=== PATIENT | male | born 1960 | race Caucasian/White ===

== ENCOUNTER → 2022-02-01 09:18 | Outpatient (BNVA) | payer OTHER, SELFPAY | PROVIDERS: Visit Provider Internal Medicine | DX: Z13.89 Encounter for screening for other disorder (principal) | CPT/HCPCS: 73564; 99204 ==

== ENCOUNTER → 2022-02-08 09:10 | Outpatient (BNVA) | payer OTHER, SELFPAY | PROVIDERS: Visit Provider Physician Assistant | DX: Z13.89 Encounter for screening for other disorder (principal) | CPT/HCPCS: 99214 ==

== ENCOUNTER 2022-02-21 18:09 | Outpatient (REF) | payer OTHER, SELFPAY ==
--- NOTE | ~2022-02-21 | MR_ITS ---
EXAMINATION: MR KNEE WITHOUT CONTRAST, RIGHT CLINICAL INFORMATION: Right knee pain COMPARISON: Radiographs 02/01/2022 TECHNIQUE: MRI of the knee without contrast was performed using routine sequences on a high-field scanner. FINDINGS: MENISCI: Medial Meniscus: Irregular horizontal tearing of the posterior horn primarily extending along the inferior articular surface. This extends to the meniscal body which is extruded. Tiny posterior parameniscal cysts. Lateral Meniscus: Intact LIGAMENTS: Cruciate: Intact Collateral: Intact EXTENSOR MECHANISM: Intact ARTICULAR CARTILAGE/BONE: Patellofemoral Compartment: Normal Medial Compartment: Nonuniform cartilage loss with focal full-thickness defects and marrow edema of the weightbearing femoral condyle. Small marginal osteophytes. Lateral Compartment: Small marginal osteophytes. JOINT FLUID AND BURSAE: Moderate joint effusion and trace Macedo's cyst. MR/MR knee RT wo con IMPRESSION: 1. Irregular horizontal tearing of the posterior horn of the medial meniscus extending to the meniscal body which is extruded. 2. Moderate medial and mild lateral compartment osteoarthritis. Moderate joint effusion.
== END 2022-02-21 18:10 | disposition home or self-care (01) ==
LOC: HO.MRI 18:09
PROVIDERS: Visit Provider Physician Assistant
DX: S89.91XD Unspecified injury of right lower leg, subsequent encounter (principal); R60.0 Localized edema
CPT/HCPCS: 73721

== ENCOUNTER → 2022-02-22 08:59 | Outpatient (BNVA) | payer OTHER, SELFPAY | PROVIDERS: Visit Provider Physician Assistant | DX: Z13.89 Encounter for screening for other disorder (principal) | CPT/HCPCS: 99213 ==

== ENCOUNTER 2022-03-08 07:10 | Outpatient (REF) | payer OTHER, SELFPAY ==
--- NOTE | ~2022-03-08 | XR_ITS ---
EXAMINATION: XR KNEE AP STANDING CLINICAL INFORMATION: Pain. COMPARISON: Radiographs dated 02/01/2022. TECHNIQUE: AP bilateral standing view of the knees was obtained. FINDINGS: Bony mineralization is normal. There is very mild narrowing of the bilateral medial joint space compartments, with slight peripheral osteophyte formation. The bilateral lateral joint space compartments are well-maintained. No fracture or dislocation is seen. This no significant varus or valgus configuration. No foreign body is noted. XR/XR knee standing BI IMPRESSION: Very mild osteoarthritic change is seen of the bilateral medial joint space compartments. No significant varus or valgus configuration is seen bilaterally.
== END 2022-03-08 07:11 | disposition home or self-care (01) ==
LOC: HO.HOSX 07:10
PROVIDERS: Visit Provider Physician Assistant
DX: M17.11 Unilateral primary osteoarthritis, right knee (principal); S83.206A Unspecified tear of unspecified meniscus, current injury, right knee, initial encounter
CPT/HCPCS: 20610; 73565; 99202; J1040

== ENCOUNTER → 2022-04-03 08:07 | Outpatient (BNVA) | payer OTHER, SELFPAY | PROVIDERS: Visit Provider Physician Assistant | DX: S83.206A Unspecified tear of unspecified meniscus, current injury, right knee, initial encounter (principal); M17.11 Unilateral primary osteoarthritis, right knee | CPT/HCPCS: 99212 ==

== ENCOUNTER → 2022-06-18 08:26 | Outpatient (BNVA) | payer OTHER, SELFPAY | PROVIDERS: Visit Provider Physician Assistant | DX: Z13.89 Encounter for screening for other disorder (principal) ==

== ENCOUNTER → 2022-07-19 14:42 | Outpatient (BNVA) | payer OTHER, SELFPAY | PROVIDERS: PCP Physician Assistant; Visit Provider Physician Assistant | DX: Z01.818 Encounter for other preprocedural examination (principal); S83.206D Unspecified tear of unspecified meniscus, current injury, right knee, subsequent encounter; M17.11 Unilateral primary osteoarthritis, right knee | CPT/HCPCS: 99212 ==

== ENCOUNTER 2022-07-24 13:44 | Day surgery (SDC) | payer OTHER, SELFPAY ==
[2022-07-18 10:20] VITALS: BMI 27.3
[2022-07-18 13:26] VITALS: BMI 27.3
--- NOTE | 2022-07-23 08:53 | HO.ANESPROP2 ---
Documented by User: Chiqui Bill NP 07/23/22 08:54 HPI - Anesthesia Eval Consult details Narrative: 62yo M for Right Knee Arthroscopy PMFSH Active Problems Active Problems: All Active Problems (Updated 07/18/22 @ 13:28 by Carie Salgado RN) Right knee meniscal tear (Acute) Osteoarthritis of right knee (Acute) Past Medical History Medical History Arthritis Family history of anesthesia complication High blood pressure History of cardiac murmur as a child Vaccination declined Surgical History Surgical History H/O colonoscopy Hx of arthroscopy of left knee Hx of hand surgery Hx of right knee surgery Social History Social History Household Members Other:: one son Are you a primary intensive care anaesthetist to a significant other at home: No Do you presently have visiting nurse or other home services: No Patient Tobacco Use Status: Never used Tobacco Use of substances other than those prescribed or required for medical reasons: No Have you been hit, kicked, punched, or otherwise hurt by someone within the past year? 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 Allergies Allergy/AdvReac Type Severity Reaction Status Date / Time bee pollen [bee stings] Allergy Severe Anaphylaxis Verified 07/19/22 14:57 morphine AdvReac Severe Vomiting Verified 07/19/22 14:57 poison salome extract AdvReac Intermediate Rash Verified 07/19/22 14:57 Home Medications Medication Instructions Recorded Confirmed Last Taken Type amlodipine 10 mg tablet 10 mg PO DAILY 03/08/22 07/18/22 Unknown History losartan 50 mg tablet 50 mg PO DAILY 06/18/22 07/18/22 Unknown History Exam Exam Date and Time: July 23, 2022 0853 Height,Weight and Vital Signs: Height 5 ft 9 in Weight 83.915 kg Assessment and Plan Assessment Anesthesia Assessment: Chart Reviewed Documented by User: Arpit Kowalski MD 07/24/22 15:19 [facility] Past Medical History Medical History Arthritis Family history of anesthesia complication High blood pressure History of cardiac murmur as a child Vaccination declined Family History Family history of problems with anesthesia: No Surgical History Surgical History H/O colonoscopy Hx of arthroscopy of left knee Hx of hand surgery Hx of right knee surgery History of Problems with Anesthesia: No Social History Social History Household Members Other:: one son Are you a primary intensive care anaesthetist to a significant other at home: No Do you presently have visiting nurse or other home services: No Patient Tobacco Use Status: Never used Tobacco Use of substances other than those prescribed or required for medical reasons: No Have you been hit, kicked, punched, or otherwise hurt by someone within the past year? 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 Allergies Allergy/AdvReac Type Severity Reaction Status Date / Time bee pollen [bee stings] Allergy Severe Anaphylaxis Verified 07/19/22 14:57 morphine AdvReac Severe Vomiting Verified 07/19/22 14:57 poison salome extract AdvReac Intermediate Rash Verified 07/19/22 14:57 Home Medications Medication Instructions Recorded Confirmed Last Taken Type amlodipine 10 mg tablet 10 mg PO DAILY 03/08/22 07/18/22 Unknown History losartan 50 mg tablet 50 mg PO DAILY 06/18/22 07/18/22 Unknown History Exam Airway Mallampati Class: II TM Dist: >3cm Neck ROM: Full Loose/Missing/Broken Teeth: No Assessment and Plan Assessment Anesthesia Assessment: Anesthesia Plan Discussed Final Anesthetic Review Family History of Problems with Anesthesia: No History of Problems with Anesthesia: No NPO: Yes ASA Class: I Final Preanesthetic Review: No Changes in Pt Med Stat, Meds/Allgs Chart Reviewed, Consent Obtained/Reviewed and Anes Risks/Benef Reviewed Patient Risk: Low Procedure Risk: Low Anesthetic Plan Anesthetic Plan: GA Disposition: Standard PACU
[2022-07-24] VITALS (7 sets, daily range): BP systolic 142–159; BP diastolic 73–93; PULSE 67–81; RESP 16–17; TEMP 36.8–37.2; O2SAT 96–100
[2022-07-24] MEDS: Lactated Ringers 1,000 ML 100 ML IVCONT (14:29)
--- NOTE | 2022-07-24 15:29 | MHC.SHP ---
Pre-Procedural Eval Section A Date of Service: 07/24/22 The patient is an INPATIENT: No Changes since office visit: No Cold of Flu in the past 2 weeks, No New Medical Problems, No Changes in Medication and No Patient answered all questions The History & Physical has been completed within 30 days and I have reviewed it.: Yes Section B Chief Complaint: Unspecified tear of unspecified meniscus, current Allergies: Allergies Allergy/AdvReac Type Severity Reaction Status Date / Time bee pollen [bee stings] Allergy Severe Anaphylaxis Verified 07/19/22 14:57 morphine AdvReac Severe Vomiting Verified 07/19/22 14:57 poison salome extract AdvReac Intermediate Rash Verified 07/19/22 14:57 Plan I have reviewed the history and physical and performed a pertinent physical examination on my patient. No changes have occurred unless specified. Time Spent With Patient Time: Total time managing care of this patient today ____ minutes.
[2022-07-24] MEDS: Ketorolac Tromethamine 30 MG/ML VIAL 15 MG IVPUSH (17:06)
--- NOTE | 2022-07-26 12:41 | PM.OP ---
Brief Operative Note Date of Service: 07/24/22 Pre-op diagnosis: Right knee MMT Post-op diagnosis: other (1) Right knee MMT 2) Right knee OA) Procedure: Right knee with partial medial meniscectomy and chondroplasty Surgeon: Darshan Lauren MD Anesthesia: GETA and local Was an Fisher Dip Net used for this Procedure?: No Estimated blood loss (mL): 5 Tourniquet time (min): 30 IV fluids (mL): 800 Pathology: none sent Condition: stable Disposition: PACU
--- NOTE | 2022-07-26 12:44 | W.PM.OPN ---
Operative Note Operative Note Date of Service: 07/24/22 Narrative: Date of Service: 07/24/22 Pre-op diagnosis: Right knee MMT Post-op diagnosis: other (1) Right knee MMT 2) Right knee OA) Procedure: Right knee with partial medial meniscectomy and chondroplasty Surgeon: Darshan Lauren MD Anesthesia: GETA and local Was an Telephony Engineer used for this Procedure?: No Estimated blood loss (mL): 5 Tourniquet time (min): 30 IV fluids (mL): 800 Pathology: none sent Condition: stable Disposition: PACU Procedure in detail: Patient was brought to the operating room placed supine on the arthroscopic table and prepped and draped in standard sterile fashion. A time-out was called to identify proper site proper procedure proper surgeon and IV antibiotics per weight were administered. I began by exsanguinating the limb and insufflating tourniquet to 300 mm Hg. Then made a standard anterolateral stab incision. The knee was insufflated with saline and 30 degree arthroscope was placed. There was grade 1 fibrillations of the patella but overall suprapatellar pouch was plane and the gutters were clean. I descended into the medial compartment where I made my medial portal under direct visualization. There was obvious of complex tear of the body and posterior horn of the medial meniscus. The root was intact and there was grade 3 changes with some scattered grade 4 changes throug the weight bearing portion of the medial femoral condyle. I used a combination of biter shaver and cautery to remove unstable portions of the meniscus. Approximately 40% pf the meniscal volume was removed. A chondroplasty was then performed with the ablation wand.Once I was satisfied with this the ACL was examined and found to be intact and the lateral compartment also was without the need for intervention. I then removed all instrumentation and closed the portals with skin glue. 25 mL of 2% Marcaine with epinephrine was injected into the joint and the surrounding soft tissues. Patient was then placed in sterile dressing extubated brought recovery room stable condition. There were no known complications.
== END 2022-07-24 17:40 | disposition home or self-care (01) ==
LOC: HO.SSS 13:44
PROVIDERS: PCP Physician Assistant; Visit Provider Orthopaedic Surgery
PROC: (CPT 29870; principal; 2022-07-24 16:00)
DX: S83.271A Complex tear of lateral meniscus, current injury, right knee, initial encounter (principal); M17.11 Unilateral primary osteoarthritis, right knee; X58.XXXA Exposure to other specified factors, initial encounter; Y93.9 Activity, unspecified; Y92.9 Unspecified place or not applicable; Y99.8 Other external cause status; Z98.890 Other specified postprocedural states; Z79.899 Other long term (current) drug therapy; I10 Essential (primary) hypertension; Z88.8 Allergy status to other drugs, medicaments and biological substances
CPT/HCPCS: 29881; J0690; J1100; J1885; J2250; J2405; J3010

== ENCOUNTER → 2022-08-06 09:08 | Outpatient (BNVA) | payer OTHER, SELFPAY | PROVIDERS: PCP Physician Assistant; Visit Provider Physician Assistant | DX: Z13.89 Encounter for screening for other disorder (principal) ==

== ENCOUNTER → 2022-08-29 13:42 | Outpatient (BNVA) | payer OTHER, SELFPAY | PROVIDERS: PCP Physician Assistant; Visit Provider Physician Assistant | DX: Z13.89 Encounter for screening for other disorder (principal) ==

== ENCOUNTER → 2022-09-06 10:08 | Outpatient (BNVA) | payer OTHER, SELFPAY | PROVIDERS: PCP Physician Assistant; Visit Provider Orthopaedic Surgery ==

== ENCOUNTER → 2022-09-27 08:42 | Outpatient (BNVA) | payer OTHER, SELFPAY | PROVIDERS: PCP Physician Assistant; Visit Provider Orthopaedic Surgery ==

== ENCOUNTER 2022-10-17 08:00 | Outpatient (RCR) | payer OTHER, SELFPAY ==
--- NOTE | 2022-08-08 12:50 | MHC.PT.EP ---
[facility] [place] Office [place] Office [place] Office [address] Jose A De Jesus [address] [phone] F: [phone] F: [phone] F: [phone] F: [phone] Physical Therapy Plan of Care Date of Evaluation: Date of Surgery: 07/24/22 Diagnosis: S/P Rt with partial medial meniscectomy and chondroplasty Assessment: 62 YO MALE REF TO PT S/P Rt MENISCECTOMY AND CHONDROPLASTY ON 07/24/22- HE HAD POST-OP Rt PROXIMAL LE EDEMA AND ECCHYMOTIC COMPLICATIONS. HE PRESENTED W ALTERED GAIT MECHANICS/ GUARDED TRANSFERS, RESIDUAL EDEMA RIGHT THIGH/ KNEE, LIMITED ROM Rt KNEE, STRENGTH DEFICTS Rt LE, AND FLUCTUATING PAIN/ SENSITIVITY Rt KNEE. 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 Frequency and Duration: The patient will be seen 2 x WK x 5 WKS Short Term Goals: *Pt'S RIGHT KNEE PAIN DECR TO 2-310 *Pt INCREASE Rt KNEE ROM -> 0* EXTEN AND PROGRESSIVELY TO 120* FLEX *INCR FLEXIB IN PSOAS/ CALF MM TO IMPROVE EFFICIENCY OF GAIT ON LEVEL AND STAIRS *REDUCE Rt LE EDEMA AND MONITOR/ ADDRESS SCAR MOB NEEDED Joist Setter Goals: Pt INDEP W HEP PROGRESSION AND SELF-SX MGMT STRATEGIES Pt RESUME REG ADLs AND RTW EVIDENT W IMPROVED LEFI SCORE BY 8-10 POINTS (AT EVAL ) Pt INCR Rt LE STRENGTH BY 1 GRADE Treatment Plan: Modalities to reduce pain, spasms and effusion. Manual therapy to restore motion and function. Therapeutic exercise to improve strength and flexibility. Neuromuscular re-education for posture and balance. Therapeutic activities to return to functional activities of daily living. Electronically signed by: ROSALIO ANDREWS,PT Please sign and return to therapist. Thank you for your referral.
--- NOTE | 2022-10-17 09:22 | MHC.PT.DC ---
[facility] [place] Office [place] Office [place] Office [address] Jose A De Jesus [address] [phone] F: [phone] F: [phone] F: [phone] F: [phone] Physical Therapy Discharge Report Diagnosis: S/P Rt with partial medial meniscectomy and chondroplasty Date of Surgery: 07/24/22 Date of Evaluation: 08/08/22 Date of Discharge: 10/17/22 Treatments to Date: 19 Cancellations to Date: 1 No Shows to Date: 0 Discharge Status: Achieved Goals Improved Function Independent with HEP Discharge Summary: THE Pt MET HIS PT GOALS AT THIS TIME, HE HAS RTW AND NOTES HIS Rt KNEE PAIN IS APPROX 1-2/10; HIS STRENGTH AND ROM ARE WFL, HE DEMON AN EFFICIENT GAIT PATTERN-> RESIDUAL DISCOMFORT W DESCENDING STAIRS- WE HAVE REVIEWED HIS HEP AND DISCUSSED IMPORTANCE OF CONT W PROPRIOCEPTIVE/STABILIZATION/ STRENGTHENING ACTIVITIES FOR MAXIMAL Rt KNEE SX RESOLUTION AND OPTIMAL FUNCTION. HIS LEFI SCORE IMPROVED FROM 21/80 AT EVAL TO 49/80 AT D/C TODAY. Electronically signed by: ROSALIO DIANE,PT Please sign and return to therapist. Thank you for your referral.
== END 2022-10-17 09:23 | disposition home or self-care (01) ==
LOC: HO.PT 08:00
PROVIDERS: Visit Provider Physician Assistant
DX: S83.206A Unspecified tear of unspecified meniscus, current injury, right knee, initial encounter (principal); M17.11 Unilateral primary osteoarthritis, right knee
CPT/HCPCS: 97014; 97110; 97112; 97140; 97162

== ENCOUNTER → 2022-10-29 08:30 | Outpatient (BNVA) | payer OTHER, SELFPAY | PROVIDERS: PCP Physician Assistant; Visit Provider Orthopaedic Surgery ==

== ENCOUNTER 2023-01-28 08:28 | Outpatient (AMB) | payer OTHER, SELFPAY ==
--- NOTE | 2023-01-28 08:27 | A.OFFVIS_ITS ---
Intake Vital Signs 01/28/23 08:33 Height 5 ft 10 in Weight 185 lb BMI 26.5 Intake Visit Reasons: OV - Right Knee 07/24/22 Intake Note: Deny is a 62 year old male who presents today for a follow up of his right knee, s/p Right Partial Medial Menisectomy 07/24/22. States he feels like he has improved about 80%, at times cont's to get a sharp pain in medial aspect of knee. Allergies bee pollen [bee stings] Allergy (Severe, Verified 01/28/23 08:34) Anaphylaxis morphine Adverse Reaction (Severe, Verified 01/28/23 08:34) Vomiting poison salome extract Adverse Reaction (Intermediate, Verified 01/28/23 08:34) Rash HPI OV - Right Knee 07/24/22 HPI Details Deny is a 62 year old man who presents ~6 months S/P right knee . He says he is doing better since his last appointment and feels he has improved about 80% since his surgery. He continues to complain of a sharp pain in the medial aspect of his knee occasionally.He says this occurs mostly when he lifts his leg to climb out of bed in the mornings. He says he has been improving in his daily function and says work has been going well. He is happy with the results of his surgery. 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 Review of Systems Const All systems reviewed & are unremarkable except as noted in HPI and below Physical Exam Vital Signs: BMI result Body Mass Index 26.5 Const General: no acute distress, alert and awake Orientation/consciousness: patient oriented x3 HEENT Head: Yes normocephalic and Yes atraumatic Eyes EOM: EOMs intact bilaterally Resp Effort & Inspection: normal respiratory effort and able to speak in complete sentences Cardio Jugular venous distension: no JVD Skin General skin exam: turgor normal Rashes: no rashes Neuro General: patient oriented x3 Extrem Other: Right Knee: Walking comfortably No effusion Full ROM quad girth improving Psych Appearance: grossly normal Affect: normal affect Attitude: cooperative Assessment & Plan Assessment & Plan (1) Status post medial meniscus repair of right knee: Comment: 07/24/22, partial medial meniscectomy & chondroplasty Code(s): Z98.890 - Other specified postprocedural states Plan: This is a 62 year old man S/P partial medial meniscectomy, DOS: 07/24/22 in a setting of moderate OA. His effusion has resolved at this time. This is a workers comp visit. He has occasional sharp medial knee pain primarily when waking up, but has improved his function and continues to work on ROM and strengthening exercises. He is tolerating his return to work well and is happy with the results of his surgery. I recommend he continue with strengthening exercises. He can follow up prn. (2) Osteoarthritis of right knee: Code(s): M17.11 - Unilateral primary osteoarthritis, right knee Coding Level of Care Code Est Pt Level 3 (34301) Diagnoses Status post medial meniscus repair of right knee Z98.890 Osteoarthritis of right knee M17.11
[2023-01-28 08:33] VITALS: BMI 26.5
== END 2023-01-28 08:39 | disposition home or self-care (01) ==
PROVIDERS: PCP Physician Assistant; Visit Provider Orthopaedic Surgery
DX: S83.231D Complex tear of medial meniscus, current injury, right knee, subsequent encounter (principal); M17.11 Unilateral primary osteoarthritis, right knee
CPT/HCPCS: 99213

== ENCOUNTER → 2023-01-28 08:28 | Outpatient (BNVA) | payer OTHER, SELFPAY | PROVIDERS: PCP Physician Assistant; Visit Provider Orthopaedic Surgery | DX: M17.11 Unilateral primary osteoarthritis, right knee (principal); Z98.890 Other specified postprocedural states | CPT/HCPCS: 99212 ==

== ENCOUNTER 2024-01-10 11:27 | Outpatient (AMB) | payer OTHER, SELFPAY ==
[2024-01-10 11:35] VITALS: BP 148/84; PULSE 69; TEMP 37.2; O2SAT 98; BMI 26.8
--- NOTE | 2024-01-10 11:35 | AM.OFFWIN_ITS ---
Intake Vital Signs 01/10/24 11:35 Height 5 ft 10 in Weight 187 lb BMI 26.8 BP 148/84 H Blood Pressure Location Lt brachial Position Sitting Pulse 69 Pulse Source Pulse Oximeter Temp 99.0 F Temp Source Oral Pulse Oximetry (%) 98 Oxygen Delivery Method Room Air Intake Visit Reasons: EP-hurted rt ankle Intake Note: pt c/o RT ankle pain. Fell off step ladder yesterday and bent foot in awkward position Patient Tobacco Use Status: Never used Tobacco Allergies bee pollen [bee stings] Allergy (Severe, Verified 01/10/24 11:44) Anaphylaxis morphine Adverse Reaction (Severe, Verified 01/10/24 11:44) Vomiting poison salome extract Adverse Reaction (Intermediate, Verified 01/10/24 11:44) Rash Do you need a note to return to daycare/school/sports/work: Yes HPI EP-hurted rt ankle HPI Details This is a 63-year-old male patient who presents to the walk-in clinic today with right ankle pain and swelling. He states that last night, he was on a ladder while doing some carpentry work, and the ladder came off of the base it was placed on, causing him to fall quickly several rungs down and land on his right foot with significant dorsiflexion of that foot/ankle. He states that he did not hear any pops or cracks, however did have severe pain immediately. He has a walking boot and crutches from a previous injury, which he has been using. He has also been elevating that right ankle, and applying ice. 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 Ankle ROM painful in all directions. Normal cap refill, normal pedal pulses. Right lower extremity: ankle Details: tenderness Psych Appearance: grossly normal Mental Status: mental status grossly normal Speech and movement: Normal speech and movement present Assessment & Plan Assessment & Plan (1) Injury of right ankle: Code(s): S99.911A - Unspecified injury of right ankle, initial encounter Qualifiers: Encounter type: initial encounter Qualified Code(s): S99.911A - Unspecified injury of right ankle, initial encounter Plan: Patient sustained a right ankle injury yesterday, causing significant pain/bruising/swelling. XR obtained in the office today does not reveal any fracture - only mild soft tissue swelling overlying the medial malleolus. He is finding benefit from his walking boot and crutches, and I advised he continue to utilize these. I also encouraged some compression with CARRIE bandage and ice/elevation of extremity. He declines any prescription medication at this time and states he has some NSAIDs at home he can use. 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 I provided him with a work note however he may ultimately need a return to work evaluation if limitations/pain persist beyond dates note provided. He will speak to HR and try to get appt. with the Work Connection at [facility]. In the meantime, if pain worsens or new symptoms develop, he can certainly return to the clinic or PCP ([facility]) for further evaluation. He verbalizes understanding and agrees to plan. Coding Level of Care Code Est Pt Level 4 (01019) Diagnoses Injury of right ankle, initial encounter S99.911A Encounter type: initial encounter
== END 2024-01-10 13:03 | disposition home or self-care (01) ==
PROVIDERS: PCP Physician Assistant; Visit Provider Nurse Practitioner Family
DX: S99.911A Unspecified injury of right ankle, initial encounter (principal)
CPT/HCPCS: 99213

== ENCOUNTER 2024-01-10 12:10 | Outpatient (REF) | payer OTHER, SELFPAY ==
--- NOTE | ~2024-01-10 | XR_ITS ---
EXAMINATION: XR ANKLE, RIGHT CLINICAL INFORMATION: Ankle injury COMPARISON: None available. TECHNIQUE: AP, lateral, and mortise views of the right ankle. FINDINGS: No fracture. Alignment is anatomic. No erosions. Joint spaces are maintained. Mild soft tissue swelling overlying the medial malleolus XR/XR ankle RT min 3V IMPRESSION: Mild soft tissue swelling overlying the medial malleolus. Electronically signed by: Danika Salmeron MD 01/11/2024 11:21 AM EDT
== END 2024-01-10 12:11 | disposition home or self-care (01) ==
LOC: HO.HMGCX 12:10
PROVIDERS: Visit Provider Nurse Practitioner Family
DX: S99.911D Unspecified injury of right ankle, subsequent encounter (principal)
CPT/HCPCS: 73610

== ENCOUNTER 2024-01-24 10:48 | Outpatient (AMB) | payer OTHER, SELFPAY ==
--- NOTE | 2024-01-24 11:24 | MHC.OFFVIS ---
Vital Signs 01/24/24 11:35 Height 5 ft 10 in Weight 187 lb BMI 26.8 Intake Visit Reasons: NewProb- RT achilles tendon rupture Intake Note: Deny a 63 year old male who presents today for an evaluation of right achilles tendon rupture, DOI 01/09/24. Patient reports that he was on a ladder when the ladder fell and he rode it down causing his foot to be bent in an awkward position. He presented to [facility] walk in clinic, xrays were taken and he was placed in a walking boot. His pain is located at the medial aspect of his achilles. He has had improvement in pain however he is unable to bear weight without wearing walking boot. Limited ROM. He continues to have swelling. Numbness and tingling has subsided. Allergies bee pollen [bee stings] Allergy (Severe, Verified 01/24/24 11:35) Anaphylaxis morphine Adverse Reaction (Severe, Verified 01/24/24 11:35) Vomiting poison salome extract Adverse Reaction (Intermediate, Verified 01/24/24 11:35) Rash Medication List - Last Reconciled 01/24/24 by Fermin Ochoa PA-C amlodipine 10 mg PO DAILY losartan 50 mg PO DAILY HPI HPI NewProb- RT achilles tendon rupture: Details: 63-year-old male who presents to the office today for an evaluation of right Achilles tendon injury, 01/09/24. He reports he was on a ladder when the ladder fell and he rode it down causing his foot to be bent in an awkward position. He was seen at walk-in clinic where x-rays were performed and he was placed in a walking boot. He currently states he has improvement however he continues to have limited ROM, swelling and pain at the medial aspect of his Achilles. He is still unable to bear weight without wearing his walking boot. His numbness and tingling have subsided. 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 he does have diffused swelling in the calf radiates through the foot. He has tenderness at the posteromedial aspect of Achilles tendon region with notable defect and a negative Hinkle's. NVI. Assessment & Plan Assessment & Plan (1) Right Achilles tendinitis: Code(s): M76.61 - Achilles tendinitis, right leg Category: Medical Plan We discussed the extent of the injury to the patient in the office today. Given that the injury is approximately 15-day-old the likelihood of a successful repair would be rather difficult. There are significant complications that could result from this and 1 would be an irrepairable tendon. Along with wound complications. We did discuss with the patient the option of nonsurgical intervention which would leave him with some loss of strength in the right ankle/Achilles however he would still be able to perform all of his activities of daily living including his job activities without significant limitations. At this time we will continue to treat this without surgical intervention. He has a tall boot that he will continue to wear weightbearing as tolerated. He will work on strict elevation to reduce the swelling. We will also get him to work with physical therapy for gentle range of motion and stretching and then progress to some strengthening exercises. Overall we did explain that this could take about 6-12 weeks for a somewhat full recovery. He will be out of work at this time for 6 weeks at which point we will reassess him for potential return to work and progression of his activities. He is content with this plan and all questions were answered. Patient Instructions: Scribed for Fermin Ochoa PA-C, by Mert Bernard medical file clerk, on 01/24/2024 at 11:15 AM EST.? I, Fermin Ochoa PA-C, have personally reviewed and agree with the information entered by the scribe. Coding Level of Care Code Est Pt Level 4 (19853) Complex EM visit Add On G2211 Diagnoses Right Achilles tendinitis M76.61
[2024-01-24 11:35] VITALS: BMI 26.8
== END 2024-01-24 12:11 | disposition home or self-care (01) ==
PROVIDERS: PCP Physician Assistant; Visit Provider Physician Assistant
DX: M76.61 Achilles tendinitis, right leg (principal)
CPT/HCPCS: 99214

== ENCOUNTER → 2024-01-24 10:48 | Outpatient (BNVA) | payer OTHER, SELFPAY | PROVIDERS: PCP Physician Assistant; Visit Provider Physician Assistant ==

== ENCOUNTER 2024-02-27 09:30 | Outpatient (AMB) | payer OTHER, SELFPAY ==
--- NOTE | 2024-02-27 09:32 | MHC.OFFVIS ---
Vital Signs 02/27/24 09:40 Height 5 ft 10 in Weight 187 lb BMI 26.8 Intake Visit Reasons: OV- RT achilles tendon rupture Intake Note: Deny a 63 year old male who presents today for a follow up of right achilles tendon rupture, DOI 01/09/24. Patient reports his leg shriveled up and that he is progressing slower than he had hoped. Allergies bee pollen [bee stings] Allergy (Severe, Verified 02/27/24 09:37) Anaphylaxis morphine Adverse Reaction (Severe, Verified 02/27/24 09:37) Vomiting poison salome extract Adverse Reaction (Intermediate, Verified 02/27/24 09:37) Rash Medication List - Last Reconciled 02/27/24 by Fermin Ochoa PA-C amlodipine 10 mg PO DAILY losartan 50 mg PO DAILY HPI HPI OV- RT achilles tendon rupture: Details: 63-year-old male who returns to the office today for a follow-up of right Achilles tendon rupture, 01/09/24. He reports his leg shriveled up and that he has been progressing slower than he had hoped. He continues to have pain in his leg. He has been working on home exercises as instructed. 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 Notable atrophy throughout the gastroc muscle. He has tenderness at the posteromedial aspect of Achilles tendon region with notable defect . He is able to dorsi flex, weakness with plantar flexion. NVI Assessment & Plan Assessment & Plan (1) Rupture of right Achilles tendon: Code(s): S86.011A - Strain of right Achilles tendon, initial encounter Category: Medical Qualifiers: Encounter type: subsequent encounter Qualified Code(s): S86.011D - Strain of right Achilles tendon, subsequent encounter Plan He states he is working on physical therapy exercises on his own and feels he is not where would like to be with his muscle tone and strength. Therefore, an order for formal physical therapy was placed. I also gave him a copy of the protocol as he will be going to a clinic outside the hospital and will book an appointment on his own. I did reassure him the muscle and strength will improve as he is in the early phases of the healing process. I would like to see him back in 6 weeks for a follow-up, sooner if needed. Orders: Orders PT Evaluation and Treatment Today S86.011A - Strain of right Achilles tendon, initial encounter Patient Instructions: Scribed for Fermin Ochoa PA-C, by Mert Bernard medical receptionist biller, on 02/27/2024 at 9:45 AM EST.? I, Fermin Ochoa PA-C, have personally reviewed and agree with the information entered by the scribe. Coding Level of Care Code Est Pt Level 3 (01176) Complex EM visit Add On G2211 Diagnoses Rupture of right Achilles tendon, subsequent encounter S86.011D Encounter type: subsequent encounter
[2024-02-27 09:40] VITALS: BMI 26.8
== END 2024-02-27 10:00 | disposition home or self-care (01) ==
PROVIDERS: PCP Physician Assistant; Visit Provider Physician Assistant
DX: S86.011D Strain of right Achilles tendon, subsequent encounter (principal)
CPT/HCPCS: 99213

== ENCOUNTER → 2024-02-27 09:30 | Outpatient (BNVA) | payer OTHER, SELFPAY | PROVIDERS: PCP Physician Assistant; Visit Provider Physician Assistant ==

== ENCOUNTER 2024-04-09 09:04 | Outpatient (AMB) | payer OTHER, SELFPAY ==
--- NOTE | 2024-04-09 09:22 | A.OFFVIS_ITS ---
Vital Signs 04/09/24 09:27 Height 5 ft 9 in Weight 185 lb BMI 27.3 Intake Visit Reasons: 6 wk fu right achilles tendon rupture Intake Note: Deny a 63 year old male who presents today for a follow up of right achilles tendon rupture, DOI 01/09/24. Patient reports he has mild pain occasionally but this is not his main concern. He is concerned about the strength in the right leg. He attempted to try walking without his boot on 03/14/24 however he says he stepped in a hole in front of his house that was covered by leaves causing his foot to jerk up and he re-injured. Ambulating at an incline exacerbates his pain in the right foot. He reports more pain with dorsiflexion. He started PT on 03/24/24 but he states they are requesting a more specific new order due to his injury from the Allergies bee pollen [bee stings] Allergy (Severe, Verified 04/09/24 09:27) Anaphylaxis morphine Adverse Reaction (Severe, Verified 04/09/24 09:27) Vomiting poison salome extract Adverse Reaction (Intermediate, Verified 04/09/24 09:27) Rash Medication List - Last Reconciled 04/09/24 by Fermin Ochoa PA-C losartan 50 mg PO DAILY HPI HPI 6 wk fu right achilles tendon rupture: Details: 63-year-old male who returns to the office today for a follow-up of right Achilles tendon rupture. He reports he attempted to try walking without his boot on 03/14/24 and stepped in a hole in front of his house that was covered by leaves causing his foot to jerk up and he reinjured. He currently states he has occasional mild pain as well as weakness in his leg. His pain is aggravated with walking at inclines and dorsiflexion. He also experiences cramps at night. He started physical therapy on 03/24/24 however he needs a more specific order today. 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 Notable atrophy throughout the gastroc muscle. He has tenderness at the posteromedial aspect of Achilles tendon region with notable defect . He is able to dorsi flex, weakness with plantar flexion. NVI Assessment & Plan Assessment & Plan (1) Rupture of right Achilles tendon: Code(s): S86.011A - Strain of right Achilles tendon, initial encounter Category: Medical Qualifiers: Encounter type: subsequent encounter Qualified Code(s): S86.011D - Strain of right Achilles tendon, subsequent encounter Plan Dr. Lauren was available to see the patient with me today. Reassurance was given that we will continue nonoperative treatment and he will continue to work with physical therapy for ROM to tolerance, strengthening and proprioceptive training as symptoms improve. He will go back to using the wedges in boot and he can remove 1 wedge every week. He will remain out of work till his next appointment in 6 weeks, sooner if needed. Orders: Orders PT Evaluation and Treatment Today S86.011D - Strain of right Achilles tendon, subsequent encounter Patient Instructions: Scribed for Fermin Ochoa PA-C, by Mert Bernard medical insurance claims specialist, on 04/09/2024 at 9:30 AM EST.? I, Fermin Ochoa PA-C, have personally reviewed and agree with the information entered by the scribe. Coding Level of Care Code Est Pt Level 3 (00681) Complex EM visit Add On G2211 Diagnoses Rupture of right Achilles tendon, subsequent encounter S86.011D Encounter type: subsequent encounter
[2024-04-09 09:27] VITALS: BMI 27.3
== END 2024-04-09 10:23 | disposition home or self-care (01) ==
PROVIDERS: PCP Physician Assistant; Visit Provider Physician Assistant
DX: S86.011D Strain of right Achilles tendon, subsequent encounter (principal)
CPT/HCPCS: 99213

== ENCOUNTER → 2024-04-09 09:04 | Outpatient (BNVA) | payer OTHER, SELFPAY | PROVIDERS: PCP Physician Assistant; Visit Provider Physician Assistant ==

== ENCOUNTER 2024-05-22 08:26 | Outpatient (AMB) | payer OTHER, SELFPAY ==
--- NOTE | 2024-05-22 08:29 | MHC.OFFVIS ---
Vital Signs 05/22/24 08:33 Height 5 ft 9 in Weight 185 lb BMI 27.3 Intake Visit Reasons: 6wk f/u Rt achilles tendon Intake Note: Deny a 63 year old male who presents today for a follow up of right achilles tendon rupture, DOI 01/09/24. Patient reports that he has transitioned out of walking boot boot into a street boot. He would like to discuss RTW on Saturday. Allergies bee pollen [bee stings] Allergy (Severe, Verified 05/22/24 08:36) Anaphylaxis morphine Adverse Reaction (Severe, Verified 05/22/24 08:36) Vomiting poison salome extract Adverse Reaction (Intermediate, Verified 05/22/24 08:36) Rash HPI HPI 6wk f/u Rt achilles tendon: Details: Six week follow-up right Achilles tendon injury. Patient is doing quite well. He continues to work with physical therapy and is wearing a regular street shoe. He still has some weakness but overall has improved since last visit. 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 He still has a palpable defect along the Achilles tendon however he is able to dorsiflex does have weakness with plantar flexion. Assessment & Plan Assessment & Plan (1) Rupture of right Achilles tendon: Code(s): S86.011A - Strain of right Achilles tendon, initial encounter Category: Medical Qualifiers: Encounter type: subsequent encounter Qualified Code(s): S86.011D - Strain of right Achilles tendon, subsequent encounter Plan: At this time he will continue with normal activities as tolerated. Continue with physical therapy to work on strengthening exercises and gait training. He will return to work on 05/25/2024. If there is any concerns or symptoms worsen he will contact our office otherwise follow-up as needed. Orders: Orders PT Evaluation and Treatment Today S86.011D - Strain of right Achilles tendon, subsequent encounter Coding Level of Care Code Est Pt Level 3 (42420) Complex EM visit Add On G2211 Diagnoses Rupture of right Achilles tendon, subsequent encounter S86.011D Encounter type: subsequent encounter
[2024-05-22 08:33] VITALS: BMI 27.3
== END 2024-05-22 08:44 | disposition home or self-care (01) ==
PROVIDERS: PCP Physician Assistant; Visit Provider Physician Assistant
DX: S86.011D Strain of right Achilles tendon, subsequent encounter (principal)
CPT/HCPCS: 99213

== ENCOUNTER → 2024-05-22 08:26 | Outpatient (BNVA) | payer OTHER, SELFPAY | PROVIDERS: PCP Physician Assistant; Visit Provider Physician Assistant ==

== ENCOUNTER 2024-06-10 08:28 | Outpatient (RCR) | payer OTHER, SELFPAY ==
--- NOTE | 2024-03-24 15:21 | MHC.PT.EP ---
[facility] [place] Office [place] Office [place] Office [address] Jose A De Jesus [address] [phone] F: [phone] F: [phone] F: [phone] F: [phone] Physical Therapy Plan of Care Date of Evaluation: 03/24/24 Date of Surgery: Diagnosis: Rt ACHILLES' RUPTURE Assessment: 63 YO MALE REF TO PT W A H/O Rt ACHILLES RUPTURE, NON-OP AND THEN A RE-INJURY ON 03/14/24- HE HAS BEEN USING A WALKING BOOT - HE WORKS FULL-TIME (32 HRS/WK) A [employer] PT AND HAS BEEN OOW SINCE THE INITIAL INJURY. THE Pt PRESENTS W LIMITED ROM Rt ANKLE, ALTERED GAIT MECH, DECR FLEXIB IN JUAN DAVID HS AND HIP IR , STIFFNESS AND SOME SWELLING IN Rt ANKLE- (+) STRENGTH DEFICITS IN Rt LE. FUNCTIONALLY, HE IS LIMITED W GAIT, STAIR NAVIGATION, DRIVING- ALL ADLs. THE Pt WOULD BENEFIT FROM PT TO ADDRESS THE ABOVE FINDINGS AND GUIDE HIM IN REGAINING HIS FUNCTIONAL INDEPENDENCE. Frequency and Duration: The patient will be seen 2 x WK x 10 WKS Short Term Goals: *DECR Rt DISTAL LE PAIN TO 2-3/10 AT MAX *INITIATE HEP-> IMPROVE HIP/HS FLEXIB *GRAD INCR ROM IN Rt ANKLE PER PROTOCOL *IMPROVE GAIT MECHANICS ON LEVEL AND STAIRS-> Pt ACHIEVE NORMAL GAIT MECHANICS W FULL WT- BEARING IN THE BOOT Fdc Goals: *INDEP HEP AND SELF/SX MGMT TECHN *IMPROVE STRENGTH IN PROX/ Rt LE AND LUMBOPELVIC *SLS Rt x 10 SEC *THE Pt RESUME REG ADLs/ RTW , PER PROTOCOL, EVIDENT W IMPROVED ( AT EVAL) Treatment Plan: Modalities to reduce pain, spasms and effusion. Manual therapy to restore motion and function. Therapeutic exercise to improve strength and flexibility. Neuromuscular re-education for posture and balance. Therapeutic activities to return to functional activities of daily living. Electronically signed by: ROSALIO DIANE,PT Please sign and return to therapist. Thank you for your referral.
--- NOTE | 2024-08-14 11:52 | MHC.PT.DC ---
[facility] [place] Office [place] Office [place] Office [address] Jose A De Jesus [address] [phone] F: [phone] F: [phone] F: [phone] F: [phone] Physical Therapy Discharge Report Diagnosis: Rt ACHILLES' RUPTURE Date of Surgery: Date of Evaluation: 03/24/24 Date of Discharge: 08/14/24 Treatments to Date: 11 Cancellations to Date: 2 No Shows to Date: 1 Discharge Status: Achieved Goals Improved Function Independent with HEP Patient Elected to Stop Discharge Summary: MAREN HAS PROGRESSED IN PT, ULTIMATE GOAL OF RTW- AT LAST SESSIONS, HE NOTED HE WAS EXPERIENCING Rt KNEE SXS , NOT PAIN -> VERY TTP Rt MEDIAL HS/ PES ANSERINE AREA-> ?? 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 .. AND THEN STRETCHES FOR HS AND HIP ADD, W (+) RESPONSE... WE HAVE ENCOURAGED CONT W HEP, ESPEC TO ADDRESS HS / HIP FLEXIB- HE IS D/C THIS DATE W A THOROUGH HEP- A FORMAL REASSESSMENT WAS NOT PERF THE Pt DID NOT ATTEND LAST SCHED PT APPT. Electronically signed by: ROSALIO DIANE,PT Please sign and return to therapist. Thank you for your referral.
== END 2024-08-14 11:52 | disposition home or self-care (01) ==
LOC: HO.PT 08:28
PROVIDERS: PCP Nurse Practitioner; Visit Provider Physician Assistant
DX: S86.011D Strain of right Achilles tendon, subsequent encounter (principal)
CPT/HCPCS: 97014; 97035; 97110; 97112; 97140; 97162; 97530